=== PATIENT | male | born 1940 | race Caucasian/White ===

== ENCOUNTER 2017-12-16 17:10 | Inpatient (IN) ==
[~2017-12-16 17:10] MED LIST: GENTAMICIN 0.1% CREAM 15 GM TUBE TOP ONE; LIDOCAINE 1% 50 ML VIAL ONE
[2017-12-16 17:47] LABS: Basophils % 0.2 % (0.0-0.8); Eosinophils # 0.1 10*3/uL (0.0-0.87); Eosinophils % 0.9 % (0.00-10.9); Hematocrit 32.8 VOL% (42.0-52.0); Hemoglobin 10.8 GM/DL (14.0-18.0); Immature Granulocytes % 0.6 %; Immature Granulocytes Absolute 0.05 #; Lymphocytes # 1.1 10*3/uL (1.4-4.0); Lymphocytes % 13.1 % (21.2-54.2); Mean Corpuscular HGB Conc 32.9 GM/DL (32-36); Mean Corpuscular Hemoglobin 32 PG (27-34); Mean Corpuscular Volume 97.3 FL (87-102); Mean Platelet Volume 10.3 FL (9.6-12.0); Monocytes # 0.7 10*3/uL (0.11-0.8); Monocytes % 8.4 % (1.7-12.7); Neutrophils # 6.6 10*3/uL (1.4-7.4); Neutrophils % 76.8 % (38.7-73.9); Platelet Count 189 T/CUMM (130-400); Red Blood Count 3.37 MC/CUMM (3.8-5.5); White Blood Count 8.6 T/CUMM (4-12)
[2017-12-16 17:54] LABS: PT Patient Result 10.7 SECS
[2017-12-16 18:07] LABS: Bilirubin,Total 0.5 MG/DL (0.2-1.0); Calcium 8.4 MG/DL (8.5-10.1); Osmolality,Calculated 293.4 MOS/KG (273-304); Potassium 4.1 MMOL/L (3.5-5.1); Total Protein 6.5 G/DL (6.4-8.3); Troponin I Only 0.035 NG/ML (0.00-0.045)
[2017-12-16] MEDS ORDERED: cefTRIAXone 1,000 MG in SODIUM CHLORIDE 0.9% 100 ML IV STA (18:55)
[2017-12-16] MEDS ORDERED: cefTRIAXone 1,000 MG VIAL ONE (19:57)
[2017-12-16 20:08] LABS: Apearance,Urine CLOUDY (Clear); Bacteria,Urine Few /HPF (Few); Bilirubin,Urine Negative (Negative); Blood, Urine Small mg/dL (Negative); Glucose,Urine (UA) Negative (Negative); Hyaline Casts,Urine 3 /LPF (0-3); Ketones,Urine 5 mg/dL (Negative); Mucus,Urine Occasional /LPF (Occasional); Nitrite,Urine Negative (Negative); Protein,Urine 30 MG/DL; Squamous Epithelial Cell,Urine Occasional /HPF (0-10); Urine Color Yellow (Yellow); Urine Urobilinogen < 2.0 EU/DL (0.2-1.0); WBC,Urine 760 /HPF (0-6)
[2017-12-16] MEDS ORDERED: ONDANSETRON 4 MG/2 ML VIAL IV PRN (21:29)
[2017-12-16] MEDS ORDERED: MORPHINE 4 MG/1 ML VIAL IV PRN (21:29)
[2017-12-16] MEDS ORDERED: ACETAMINOPHEN 325 MG TABLET PO PRN (21:29)
[2017-12-16] MEDS ORDERED: FUROSEMIDE 20 MG TABLET PO PRN (21:29)
[2017-12-16] MEDS ORDERED: GLUCAGON 1 MG VIAL IM PRN (21:29)
[2017-12-16] MEDS ORDERED: DEXTROSE 50% 25 GM/50 ML VIAL IV PRN (21:29)
[2017-12-16] MEDS: TAMSULOSIN 0.4 MG CAPSULE PO SCH (22:58)
[2017-12-16] MEDS: SIMVASTATIN 40 MG TABLET PO SCH (22:58)
[2017-12-16] MEDS: SERTRALINE 50 MG TABLET PO SCH (22:59)
[2017-12-16] MEDS: CARVEDILOL 12.5 MG TABLET PO SCH (22:59)
[2017-12-16] MEDS: GABAPENTIN 400 MG CAPSULE PO SCH (22:59)
[2017-12-16] MEDS: INSULIN GLARGINE 100 UNIT/ML SUBCUT SCH (23:00)
[2017-12-16] MEDS: cefTRIAXone 1,000 MG in SYRINGE 1 EACH IV SCH (23:04)
[2017-12-16] MEDS: SODIUM CHLORIDE 0.9% 1,000 ML IV SCH (23:09)
[2017-12-16] MEDS: CLOPIDOGREL 75 MG TABLET PO SCH (23:10)
[2017-12-16] MEDS: INSULIN REGULAR 100 UNIT/ML SUBCUT SCH (23:38)
[2017-12-16] MEDS: DOCUSATE SODIUM 100 MG CAPSULE PO SCH (23:38)
[2017-12-17 05:24] LABS: Basophils % 0.3 % (0.0-0.8); Eosinophils % 0.5 % (0.00-10.9); Hematocrit 27.8 VOL% (42.0-52.0); Hemoglobin 9.5 GM/DL (14.0-18.0); Immature Granulocytes % 0.5 %; Immature Granulocytes Absolute 0.04 #; Lymphocytes # 1.5 10*3/uL (1.4-4.0); Lymphocytes % 19.3 % (21.2-54.2); Mean Corpuscular HGB Conc 34.2 GM/DL (32-36); Mean Corpuscular Hemoglobin 33 PG (27-34); Mean Corpuscular Volume 95.5 FL (87-102); Mean Platelet Volume 10.4 FL (9.6-12.0); Monocytes # 0.7 10*3/uL (0.11-0.8); Monocytes % 9.3 % (1.7-12.7); Neutrophils # 5.4 10*3/uL (1.4-7.4); Neutrophils % 70.1 % (38.7-73.9); Platelet Count 163 T/CUMM (130-400); Red Blood Count 2.91 MC/CUMM (3.8-5.5); Red Cell Distribution Width 13.2 % (9.3-17.3); White Blood Count 7.7 T/CUMM (4-12)
[2017-12-17 05:47] LABS: Alanine Aminotransferase 11 U/L (16-61); Albumin 2.6 G/DL (3.4-5.0); Alkaline Phosphatase 87 U/L (45-117); Aspartate Amino Transferase 14 U/L (0-37); Bilirubin,Total < 0.39 MG/DL (0.2-1.0); Blood Urea Nitrogen 42 MG/DL (7-18); Glucose 182 MG/DL (74-106); Osmolality,Calculated 290.7 MOS/KG (273-304); Sodium 138 MMOL/L (136-145)
[2017-12-17] MEDS ORDERED: CHLORHEXIDINE 4% SOLN 118 ML BOTTLE TOP ONE (08:24)
[2017-12-17] MEDS ORDERED: COLLAGENASE OINT 30 GM TUBE TOP SCH (09:00)
[2017-12-17] MEDS: GABAPENTIN 400 MG CAPSULE PO SCH ×3 (11:00→22:02)
[2017-12-17] MEDS: sitaGLIPtin 25 MG TABLET PO SCH (11:00)
[2017-12-17] MEDS: PANTOPRAZOLE 40 MG TABLET PO SCH (11:01)
[2017-12-17] MEDS: CARVEDILOL 12.5 MG TABLET PO SCH ×2 (11:01→22:02)
[2017-12-17] MEDS: GLIMEPIRIDE 4 MG TABLET PO SCH ×2 (11:01→17:23)
[2017-12-17] MEDS: TAMSULOSIN 0.4 MG CAPSULE PO SCH ×2 (11:01→22:03)
[2017-12-17] MEDS: ASPIRIN EC 81 MG TABLET PO SCH (11:01)
[2017-12-17] MEDS: DOCUSATE SODIUM 100 MG CAPSULE PO SCH ×2 (11:01→22:24)
[2017-12-17] MEDS: INSULIN REGULAR 100 UNIT/ML SUBCUT SCH ×4 (11:01→22:24)
[2017-12-17] MEDS ORDERED: SKIN HEALING OINT (AQUAPHOR) 50 GM TUBE TOP PRN (15:38)
[2017-12-17] MEDS: SODIUM CHLORIDE 0.9% 1,000 ML IV SCH (16:37)
[2017-12-17] MEDS: ACETIC ACID 0.25% IRRIGATION 1,000 ML BOTTLE IRRIG SCH ×2 (16:39→22:24)
[2017-12-17] MEDS: SERTRALINE 50 MG TABLET PO SCH (22:02)
[2017-12-17] MEDS: SIMVASTATIN 40 MG TABLET PO SCH (22:02)
[2017-12-17] MEDS: cefTRIAXone 1,000 MG in SYRINGE 1 EACH IV SCH (22:03)
[2017-12-17] MEDS: INSULIN GLARGINE 100 UNIT/ML SUBCUT SCH (22:24)
[2017-12-17] MEDS: CLOPIDOGREL 75 MG TABLET PO SCH (22:25)
[2017-12-18 05:49] LABS: Basophils % 0.1 % (0.0-0.8); Eosinophils # 0.2 10*3/uL (0.0-0.87); Eosinophils % 3.2 % (0.00-10.9); Hematocrit 27.3 VOL% (42.0-52.0); Hemoglobin 9.2 GM/DL (14.0-18.0); Immature Granulocytes % 0.5 %; Immature Granulocytes Absolute 0.04 #; Lymphocytes # 1.6 10*3/uL (1.4-4.0); Lymphocytes % 21.8 % (21.2-54.2); Mean Corpuscular HGB Conc 33.7 GM/DL (32-36); Mean Corpuscular Hemoglobin 32 PG (27-34); Mean Corpuscular Volume 94.1 FL (87-102); Mean Platelet Volume 10.7 FL (9.6-12.0); Monocytes # 0.7 10*3/uL (0.11-0.8); Monocytes % 9.1 % (1.7-12.7); Neutrophils # 4.9 10*3/uL (1.4-7.4); Neutrophils % 65.3 % (38.7-73.9); Platelet Count 160 T/CUMM (130-400); Red Cell Distribution Width 12.9 % (9.3-17.3); White Blood Count 7.5 T/CUMM (4-12)
[2017-12-18 06:20] LABS: Calcium 7.9 MG/DL (8.5-10.1); Osmolality,Calculated 288.1 MOS/KG (273-304); Potassium 3.8 MMOL/L (3.5-5.1)
[2017-12-18] MEDS: sitaGLIPtin 25 MG TABLET PO SCH (08:20)
[2017-12-18] MEDS: TAMSULOSIN 0.4 MG CAPSULE PO SCH ×2 (08:21→21:16)
[2017-12-18] MEDS: CARVEDILOL 12.5 MG TABLET PO SCH ×2 (08:21→21:16)
[2017-12-18] MEDS: GLIMEPIRIDE 4 MG TABLET PO SCH ×2 (08:21→18:49)
[2017-12-18] MEDS: GABAPENTIN 400 MG CAPSULE PO SCH ×3 (08:21→21:16)
[2017-12-18] MEDS: PANTOPRAZOLE 40 MG TABLET PO SCH (08:21)
[2017-12-18] MEDS: ASPIRIN EC 81 MG TABLET PO SCH (08:21)
[2017-12-18] MEDS: INSULIN REGULAR 100 UNIT/ML SUBCUT SCH ×4 (08:30→21:17)
[2017-12-18] MEDS: DOCUSATE SODIUM 100 MG CAPSULE PO SCH ×2 (08:51→21:17)
[2017-12-18] MEDS ORDERED: FUROSEMIDE 40 MG TABLET PO SCH (09:00)
[2017-12-18] MEDS: ACETIC ACID 0.25% IRRIGATION 1,000 ML BOTTLE IRRIG SCH ×2 (18:49→22:56)
[2017-12-18] MEDS: BACITRACIN OINT 0.9 GM PACK TOP SCH (18:49)
[2017-12-18] MEDS: SERTRALINE 50 MG TABLET PO SCH (21:16)
[2017-12-18] MEDS: CLOPIDOGREL 75 MG TABLET PO SCH (21:16)
[2017-12-18] MEDS: INSULIN GLARGINE 100 UNIT/ML SUBCUT SCH (21:16)
[2017-12-18] MEDS: SIMVASTATIN 40 MG TABLET PO SCH (21:16)
[2017-12-18] MEDS: cefTRIAXone 1,000 MG in SYRINGE 1 EACH IV SCH (21:17)
[2017-12-19 05:34] LABS: Basophils % 0.1 % (0.0-0.8); Eosinophils # 0.3 10*3/uL (0.0-0.87); Eosinophils % 3.3 % (0.00-10.9); Hematocrit 27.8 VOL% (42.0-52.0); Hemoglobin 9.5 GM/DL (14.0-18.0); Immature Granulocytes % 0.6 %; Immature Granulocytes Absolute 0.05 #; Lymphocytes # 1.9 10*3/uL (1.4-4.0); Lymphocytes % 24.4 % (21.2-54.2); Mean Corpuscular HGB Conc 34.2 GM/DL (32-36); Mean Corpuscular Hemoglobin 32 PG (27-34); Mean Corpuscular Volume 93.9 FL (87-102); Mean Platelet Volume 10.9 FL (9.6-12.0); Monocytes # 0.7 10*3/uL (0.11-0.8); Monocytes % 8.7 % (1.7-12.7); Neutrophils % 62.9 % (38.7-73.9); Platelet Count 173 T/CUMM (130-400); Red Blood Count 2.96 MC/CUMM (3.8-5.5); Red Cell Distribution Width 12.9 % (9.3-17.3); White Blood Count 7.9 T/CUMM (4-12)
[2017-12-19 06:02] LABS: Calcium 7.7 MG/DL (8.5-10.1); Osmolality,Calculated 283.3 MOS/KG (273-304); Potassium 4.2 MMOL/L (3.5-5.1)
[2017-12-19 08:04] VITALS: BP 118/58
[2017-12-19] MEDS: INSULIN REGULAR 100 UNIT/ML SUBCUT SCH (08:39)
[2017-12-19] MEDS: sitaGLIPtin 25 MG TABLET PO SCH (08:40)
[2017-12-19] MEDS: CARVEDILOL 12.5 MG TABLET PO SCH (08:40)
[2017-12-19] MEDS: TAMSULOSIN 0.4 MG CAPSULE PO SCH (08:40)
[2017-12-19] MEDS: PANTOPRAZOLE 40 MG TABLET PO SCH (08:40)
[2017-12-19] MEDS: GLIMEPIRIDE 4 MG TABLET PO SCH (08:40)
[2017-12-19] MEDS: GABAPENTIN 400 MG CAPSULE PO SCH (08:40)
[2017-12-19] MEDS: ASPIRIN EC 81 MG TABLET PO SCH (08:40)
[2017-12-19] MEDS: DOCUSATE SODIUM 100 MG CAPSULE PO SCH ×2 (08:41→08:42)
[2017-12-19] MEDS: BACITRACIN OINT 0.9 GM PACK TOP SCH (08:41)
[2017-12-19] MEDS: ACETIC ACID 0.25% IRRIGATION 1,000 ML BOTTLE IRRIG SCH (08:41)
== END 2017-12-19 11:50 | disposition home or self-care (01) | DRG 981 ==
LOC: N.ED 17:10 → N.EDINP 20:23 → N.TELES 20:52
PROVIDERS: ADMIT Internal Medicine; ATTEND Internal Medicine